=== PATIENT | female | born 1980 | race Caucasian/White ===

== ENCOUNTER 2018-08-15 17:42 | Emergency (ER) | payer MEDICAID ==
[~2018-08-15] VITALS: Ht 162.6 cm; Wt 95.9 kg
[~2018-08-15 17:42] MED LIST: CLON.5 PO; IBUP-2071 PO; LORA1TAB3 PO; METO5TAB95 PO
[2018-08-15 18:47] LABS: BASOPHILS % (AUTO) 0.5 % (0.0-2.0); EOSINOPHILS % (AUTO) 3.5 % (1.0-6.0); HEMATOCRIT 40.6 % (36-46); HEMOGLOBIN 13.6 g/dL (12.0-16.0); LYMPHOCYTES # (AUTO) 2.4 K/uL (1.0-4.8); LYMPHOCYTES % (AUTO) 34.5 % (22.0-44.0); MEAN CORPUSCULAR HEMOGLOBIN 28.5 pg (26.0-34.0); MEAN CORPUSCULAR HGB CONC 33.5 G/dL (31.0-37.0); MEAN CORPUSCULAR VOLUME 85 fL (80-100); MONOCYTES # (AUTO) 0.6 K/uL (0.1-1.0); MONOCYTES % (AUTO) 8.2 % (2.0-9.0); NEUTROPHILS # (AUTO) 3.6 K/uL (1.8-7.7); NEUTROPHILS % (AUTO) 53.3 % (40.0-70.0); PLATELET COUNT (AUTO) 278 K/uL (150-450); RED BLOOD CELL COUNT(AUTO) 4.77 MIL/uL (4.00-5.20); RED CELL DISTRIBUTION WIDTH 14.4 % (11.5-14.5)
[2018-08-15 18:51] LABS: APPEARANCE,URINE CLEAR (CLEAR); BILIRUBIN,URINE NEGATIVE (NEGATIVE); GLUCOSE, URINE (UA) NEGATIVE (NEGATIVE); KETONES,URINE NEGATIVE (NEGATIVE); LEUKOCYTE ESTERASE ,URINE NEGATIVE (NEGATIVE); NITRATE,URINE NEGATIVE (NEGATIVE); OCCULT BLOOD,URINE TRACE (NEGATIVE); PH,URINE 6.5 (5.0-8.0); PROTEIN,URINE NEGATIVE (NEGATIVE); UROBILINOGEN,URINE 0.2 mg/dL (<=1.0)
[2018-08-15 18:56] LABS: ANION GAP 7 mmol/L (8-16); CALCIUM, TOTAL 8.4 mg/dL (8.8-10.5); CARBON DIOXIDE 26 mmol/L (22-29); CHLORIDE 105 mmol/L (98-107); CREATININE 0.85 mg/dL (0.60-1.30); GLOMERULAR FILTR. RATE CALC > 60 mL/min (>60); GLUCOSE,RANDOM 96 mg/dL (70-110); POTASSIUM 4.1 mmol/L (3.5-5.1); SODIUM SERUM 138 mmol/L (136-145); UREA NITROGEN, BLOOD 14 mg/dL (7-18)
[2018-08-15 19:02] LABS: BACTERIA,URINE None Seen /HPF (None Seen); RBC,URINE 0-2 /HPF (0-2); SQUAMOUS EPITHELIAL CELL,UR Few /LPF (None Seen); WBC,URINE None Seen /HPF (0-5)
[2018-08-15 19:08] LABS: ALANINE AMINOTRANSFERASE 18 U/L (12-78); ALBUMIN 3.3 g/dL (3.4-5.0); ALKALINE PHOSPHATASE 69 U/L (46-116); ASPARTATE AMINOTRANSFERASE 12 U/L (15-37); BILIRUBIN,TOTAL 0.2 mg/dL (0.1-1.0); HCG,QUANTITATIVE < 1 mIU/mL (0-6); TOTAL PROTEIN, SERUM 7.2 g/dL (6.4-8.2)
[2018-08-15 19:56] VITALS: BP 125/65
== END 2018-08-15 20:05 | disposition home or self-care (01) ==
LOC: EMS 17:44
DX: N93.8 Other specified abnormal uterine and vaginal bleeding (principal); F41.9 Anxiety disorder, unspecified; G43.909 Migraine, unspecified, not intractable, without status migrainosus; E66.9 Obesity, unspecified; I10 Essential (primary) hypertension; Z68.36 Body mass index [BMI] 36.0-36.9, adult; Z98.51 Tubal ligation status; Z88.2 Allergy status to sulfonamides
CPT/HCPCS: 99284

== ENCOUNTER 2020-06-09 11:23 | Emergency (ER) | payer MEDICAID ==
[~2020-06-09] VITALS: Ht 162.6 cm; Wt 100.0 kg
[~2020-06-09 11:23] MED LIST changes: +LORA-1000 PO; -LORA1TAB3 PO
[2020-06-09] MEDS ORDERED: PENICILLIN G BENZATHINE LA 1,200,000 UNITS/2 ML SYRINGE IM ONE (12:00)
[2020-06-09] MEDS ORDERED: KETOROLAC TROMETHAMINE 30 MG/ML VIAL IM ONE (12:00)
[2020-06-09] MEDS ORDERED: BENZOCAINE/MENTHOL LOZENGE PO ONE (12:00)
[2020-06-09] MEDS ORDERED: AZIT-84 PO (12:01)
[2020-06-09] MEDS ORDERED: ACETAMINOPHEN 500 MG TABLET PO ONE (13:00)
[2020-06-09 13:06] VITALS: BP 128/71
[2020-06-09] MEDS ORDERED: DEXAMETHASONE 4 MG TABLET PO ONE (13:30)
== END 2020-06-09 13:55 | disposition home or self-care (01) ==
LOC: EMS 11:24
DX: J02.0 Streptococcal pharyngitis (principal); I10 Essential (primary) hypertension; F41.9 Anxiety disorder, unspecified; Z91.013 Allergy to seafood; Z79.899 Other long term (current) drug therapy
CPT/HCPCS: 96372; 99284; J0561; J1885; J8540

== ENCOUNTER 2020-12-20 17:13 | Emergency (ER) | payer MEDICAID, OTHER ==
[~2020-12-20] VITALS: Ht 162.6 cm; Wt 100.0 kg
[~2020-12-20 17:13] MED LIST changes: +AZIT-84 PO; +CLON-592 PO; -CLON.5 PO; -METO5TAB95 PO
[2020-12-20] MEDS ORDERED: ACET-2247 PO (17:22)
[2020-12-20] MEDS ORDERED: FLUT16H NASAL (17:22)
[2020-12-20] MEDS ORDERED: LORA10TA7 PO (17:22)
[2020-12-20] MEDS ORDERED: ONDANSETRON HCL 4 MG/2 ML VIAL IVP ONE (18:00)
[2020-12-20] MEDS ORDERED: SODIUM CHLORIDE 0.9% 500 ML IV ONE (18:00)
[2020-12-20] MEDS ORDERED: KETOROLAC TROMETHAMINE 30 MG/ML VIAL IVP ONE (18:00)
[2020-12-20] MEDS ORDERED: DEXAMETHASONE SOD PHOS 4 MG/ML VIAL IVP ONE (18:00)
[2020-12-20 19:45] VITALS: BP 124/77
== END 2020-12-20 19:50 | disposition home or self-care (01) ==
LOC: EMS 17:13
DX: R51.9 Headache, unspecified (principal)
CPT/HCPCS: 93005; 96361; 96375; 99284; 96374; J1100; J1885; J2405; J7040

== ENCOUNTER 2021-03-28 19:23 | Emergency (ER) | payer OTHER, MEDICAID ==
[~2021-03-28] VITALS: Ht 162.6 cm; Wt 104.5 kg
[~2021-03-28 19:23] MED LIST changes: +ACET-2247 PO; -AZIT-84 PO; -CLON-592 PO; +FLUT16H NASAL; +LORA10TA7 PO
[2021-03-28 20:34] LABS: APPEARANCE,URINE CLEAR (CLEAR); BILIRUBIN,URINE NEGATIVE (NEGATIVE); GLUCOSE, URINE (UA) NEGATIVE (NEGATIVE); KETONES,URINE NEGATIVE (NEGATIVE); LEUKOCYTE ESTERASE ,URINE NEGATIVE (NEGATIVE); NITRATE,URINE NEGATIVE (NEGATIVE); OCCULT BLOOD,URINE MODERATE (NEGATIVE); PH,URINE 5.5 (5.0-8.0); PROTEIN,URINE NEGATIVE (NEGATIVE); UROBILINOGEN,URINE 0.2 mg/dL (<=1.0)
[2021-03-28 21:01] LABS: BACTERIA,URINE None Seen /HPF (None Seen); RBC,URINE 0-2 /HPF (0-2); SQUAMOUS EPITHELIAL CELL,UR Few /LPF (None Seen); WBC,URINE 0-2 /HPF (0-5)
[2021-03-28] MEDS ORDERED: SODIUM CHLORIDE 0.9% 1,000 ML IV ONE (21:15)
[2021-03-28] MEDS ORDERED: KETOROLAC TROMETHAMINE 30 MG/ML VIAL IVP ONE (21:15)
[2021-03-28] MEDS ORDERED: ONDANSETRON HCL 4 MG/2 ML VIAL IVP ONE (21:15)
[2021-03-28 21:53] LABS: BASOPHILS % (AUTO) 0.6 % (0.0-2.0); EOSINOPHILS % (AUTO) 3.3 % (1.0-6.0); HEMATOCRIT 39.9 % (36-46); LYMPHOCYTES # (AUTO) 2.8 K/uL (1.0-4.8); LYMPHOCYTES % (AUTO) 29.1 % (22.0-44.0); MEAN CORPUSCULAR HEMOGLOBIN 27.1 pg (26.0-34.0); MEAN CORPUSCULAR HGB CONC 32.5 G/dL (31.0-37.0); MEAN CORPUSCULAR VOLUME 83 fL (80-100); MONOCYTES # (AUTO) 0.9 K/uL (0.1-1.0); MONOCYTES % (AUTO) 9.5 % (2.0-9.0); NEUTROPHILS # (AUTO) 5.5 K/uL (1.8-7.7); NEUTROPHILS % (AUTO) 57.5 % (40.0-70.0); PLATELET COUNT (AUTO) 311 K/uL (150-450); RED BLOOD CELL COUNT(AUTO) 4.79 MIL/uL (4.00-5.20)
[2021-03-28 21:58] LABS: ANION GAP 9 mmol/L (8-16); CALCIUM, TOTAL 8.6 mg/dL (8.8-10.5); CARBON DIOXIDE 25 mmol/L (22-29); CHLORIDE 105 mmol/L (98-107); CREATININE 0.99 mg/dL (0.60-1.30); GLOMERULAR FILTR. RATE CALC > 60 mL/min (>60); GLUCOSE,RANDOM 83 mg/dL (70-110); POTASSIUM 3.7 mmol/L (3.5-5.1); SODIUM SERUM 139 mmol/L (136-145); UREA NITROGEN, BLOOD 19 mg/dL (7-18)
[2021-03-28 22:04] LABS: ALANINE AMINOTRANSFERASE 22 U/L (12-78); ALBUMIN 3.5 g/dL (3.4-5.0); ALKALINE PHOSPHATASE 77 U/L (46-116); ASPARTATE AMINOTRANSFERASE 12 U/L (15-37); BILIRUBIN,TOTAL 0.2 mg/dL (0.1-1.0); LIPASE 95 U/L (73-393); TOTAL PROTEIN, SERUM 7.2 g/dL (6.4-8.2)
[2021-03-28] MEDS ORDERED: MORPHINE SULFATE 4 MG/ML SYRINGE IVP ONE (22:30)
[2021-03-28 23:27] VITALS: BP 115/80
== END 2021-03-29 00:08 | disposition home or self-care (01) ==
LOC: EMS 19:23
DX: R10.12 Left upper quadrant pain (principal); R11.2 Nausea with vomiting, unspecified
CPT/HCPCS: 36415; 74176; 80053; 81001; 81002; 81025; 83690; 85025; 96361; 96374; 96375; 99284; J1885; J2270; J2405; J7030

== ENCOUNTER 2021-08-20 15:18 | Emergency (ER) | payer OTHER, MEDICAID ==
[~2021-08-20] VITALS: Ht 162.6 cm; Wt 101.0 kg
[2021-08-20 17:17] VITALS: BP 129/87
[2021-08-20 17:43] LABS: COVID AG,FIA SOURCE NASOPHARYNGEAL
[2021-08-20] MEDS ORDERED: ALBUTEROL SULFATE HFA 90 MCG/PUFF 8 GM INHALER IH ONE (18:45)
[2021-08-20 18:48] LABS: INFLUENZA TYPE A NEGATIVE FOR TYPE A (NEGATIVE); INFLUENZA TYPE B NEGATIVE FOR TYPE B (NEGATIVE)
== END 2021-08-20 19:10 | disposition home or self-care (01) ==
LOC: EMS 15:22
DX: B34.9 Viral infection, unspecified (principal); J40 Bronchitis, not specified as acute or chronic; F41.9 Anxiety disorder, unspecified; J45.909 Unspecified asthma, uncomplicated; K80.80 Other cholelithiasis without obstruction; I10 Essential (primary) hypertension; Z20.822 Contact with and (suspected) exposure to COVID-19
CPT/HCPCS: 71045; 87426; 87804; 99283; U0003; 99284

== ENCOUNTER 2022-01-02 21:02 | Emergency (ER) | payer OTHER, MEDICAID ==
[~2022-01-02] VITALS: Ht 162.6 cm; Wt 103.6 kg
[2022-01-02] MEDS ORDERED: SUMAtriptan SUCCINATE 6 MG/0.5 ML VIAL SQ ONE (21:45)
[2022-01-02] MEDS ORDERED: SODIUM CHLORIDE 0.9% 1,000 ML IV ONE (22:15)
[2022-01-02] MEDS ORDERED: METOCLOPRAMIDE HCL 5 MG/ML 2 ML VIAL IVP ONE (22:15)
[2022-01-02] MEDS ORDERED: KETOROLAC TROMETHAMINE 30 MG/ML VIAL IVP ONE (22:15)
[2022-01-02] MEDS ORDERED: DiphenhydrAMINE HCL 50 MG/ML VIAL IVP ONE (22:15)
[2022-01-02 23:00] VITALS: BP 138/71
== END 2022-01-02 23:04 | disposition home or self-care (01) ==
LOC: EMS 21:08
DX: G43.909 Migraine, unspecified, not intractable, without status migrainosus (principal); I10 Essential (primary) hypertension; J45.909 Unspecified asthma, uncomplicated; F41.9 Anxiety disorder, unspecified; Z91.013 Allergy to seafood; Z88.8 Allergy status to other drugs, medicaments and biological substances; Z79.899 Other long term (current) drug therapy
CPT/HCPCS: 96372; 96374; 96375; 99284; J1200; J1885; J2765; J3030; J7030

== ENCOUNTER 2022-11-02 08:23 | Emergency (ER) | payer OTHER, MEDICAID ==
[~2022-11-02] VITALS: Ht 162.6 cm; Wt 101.8 kg
[~2022-11-02 08:23] MED LIST changes: -FLUT16H NASAL; +FLUT16SP NASAL; +IBUP-1493 PO; -IBUP-2071 PO
[2022-11-02] MEDS ORDERED: FLUT1BLS10 IH (08:38)
[2022-11-02] MEDS ORDERED: FLUT44H IH (08:38)
[2022-11-02] MEDS: IPRATROPIUM BROMIDE 0.5 MG/2.5 ML NEB SOLUTION NEB ONE (09:44)
[2022-11-02] MEDS: ALBUTEROL SULFATE 2.5 MG/0.5 ML NEB SOLUTION NEB ONE (09:45)
[2022-11-02] MEDS: MAG HYDROX/AL HYDROX/SIMETH ES 30 ML SUSPENSION UDCUP PO ONE (09:46)
[2022-11-02] MEDS: FAMOTIDINE 20 MG TABLET PO ONE (09:46)
[2022-11-02 09:53] LABS: COVID AG,FIA SOURCE NASOPHARYNGEAL
[2022-11-02 10:10] VITALS: BP 102/56
[2022-11-02 10:15] LABS: INFLUENZA TYPE A NEGATIVE FOR TYPE A (NEGATIVE); INFLUENZA TYPE B NEGATIVE FOR TYPE B (NEGATIVE)
[2022-11-02] MEDS ORDERED: AZIT250T9 PO (10:49)
== END 2022-11-02 11:10 | disposition home or self-care (01) ==
LOC: EMS 08:37
DX: J06.9 Acute upper respiratory infection, unspecified (principal); Z20.822 Contact with and (suspected) exposure to COVID-19; J45.909 Unspecified asthma, uncomplicated; K27.9 Peptic ulcer, site unspecified, unspecified as acute or chronic, without hemorrhage or perforation; K21.9 Gastro-esophageal reflux disease without esophagitis; R10.13 Epigastric pain
CPT/HCPCS: 71045; 87804; 93005; 94640; 99285; J7613

== ENCOUNTER 2023-04-18 09:16 | Emergency (ER) | payer OTHER, MEDICAID ==
[~2023-04-18] VITALS: Ht 160 cm; Wt 81.8 kg
[~2023-04-18 09:16] MED LIST changes: -ACET-2247 PO; +FLUT1BLS10 IH; +FLUT44H IH; -IBUP-1493 PO; -LORA10TA7 PO
[2023-04-18] MEDS ORDERED: LORA-999 PO (09:23)
[2023-04-18] MEDS ORDERED: LIDOCAINE 5% TRANSDERMAL PATCH TD ONE (10:15)
[2023-04-18 12:00] VITALS: BP 135/84
[2023-04-18] MEDS ORDERED: LIDO1ADH83 TP (12:01)
== END 2023-04-18 12:14 | disposition home or self-care (01) ==
LOC: EMS 09:18
DX: S63.512A Sprain of carpal joint of left wrist, initial encounter (principal); F41.9 Anxiety disorder, unspecified; J45.909 Unspecified asthma, uncomplicated; I10 Essential (primary) hypertension; G43.909 Migraine, unspecified, not intractable, without status migrainosus; Z90.49 Acquired absence of other specified parts of digestive tract; Z98.51 Tubal ligation status; Z88.8 Allergy status to other drugs, medicaments and biological substances; Z98.890 Other specified postprocedural states; Z91.013 Allergy to seafood; W18.39XA Other fall on same level, initial encounter; Y93.89 Activity, other specified; Y92.89 Other specified places as the place of occurrence of the external cause; Y99.8 Other external cause status
CPT/HCPCS: 99283

== ENCOUNTER 2023-11-13 08:24 | Emergency (ER) | payer OTHER, MEDICAID ==
[~2023-11-13] VITALS: Ht 162.6 cm; Wt 96.8 kg
[~2023-11-13 08:24] MED LIST changes: +LIDO1ADH83 TP; -LORA-1000 PO; +LORA-999 PO
[2023-11-13 08:43] VITALS: TEMP 98.5
[2023-11-13] MEDS ORDERED: ALBUTEROL SULFATE 2.5 MG/0.5 ML NEB SOLUTION NEB ONE (09:00)
[2023-11-13] MEDS ORDERED: IPRATROPIUM BROMIDE 0.5 MG/2.5 ML NEB SOLUTION NEB ONE (09:00)
[2023-11-13 09:09] VITALS: PULSE 88; RESP 25; O2SAT 97
[2023-11-13 09:24] VITALS: PULSE 98; RESP 12; O2SAT 99
[2023-11-13] MEDS ORDERED: ACETAMINOPHEN 500 MG TABLET PO ONE (10:00)
[2023-11-13 10:10] LABS: BASOPHILS % (AUTO) 0.4 % (0.0-2.0); EOSINOPHILS % (AUTO) 0.7 % (1.0-6.0); HEMATOCRIT 38.2 % (36-46); HEMOGLOBIN 12.7 g/dL (12.0-16.0); LYMPHOCYTES % (AUTO) 14.1 % (22.0-44.0); MEAN CORPUSCULAR HEMOGLOBIN 27.6 pg (26.0-34.0); MEAN CORPUSCULAR HGB CONC 33.2 G/dL (31.0-37.0); MEAN CORPUSCULAR VOLUME 83 fL (80-100); MONOCYTES % (AUTO) 14.3 % (2.0-9.0); NEUTROPHILS # (AUTO) 5.1 K/uL (1.8-7.7); NEUTROPHILS % (AUTO) 70.5 % (40.0-70.0); PLATELET COUNT (AUTO) 274 K/uL (150-450); RED CELL DISTRIBUTION WIDTH 16.1 % (11.5-14.5); WHITE BLOOD COUNT (AUTO) 7.3 K/uL (4.5-11.0)
[2023-11-13 10:15] LABS: ANION GAP 9 mmol/L (8-16); CALCIUM, TOTAL 8.5 mg/dL (8.8-10.5); CARBON DIOXIDE 27 mmol/L (22-29); CHLORIDE 105 mmol/L (98-107); CREATININE 0.84 mg/dL (0.60-1.30); GLOMERULAR FILTR. RATE CALC > 60 mL/min (>60); GLUCOSE,RANDOM 84 mg/dL (70-110); POTASSIUM 3.5 mmol/L (3.5-5.1); SODIUM SERUM 141 mmol/L (136-145); UREA NITROGEN, BLOOD 8 mg/dL (7-18)
[2023-11-13 10:17] LABS: INFLUENZA A-RTPCR,COMBO POSITIVE FOR FLU A (NEGATIVE); INFLUENZA B-RTPCR,COMBO NEGATIVE FOR FLU B (NEGATIVE); RESPIRATORY SYNCYTIAL VRS-PCR NEGATIVE (NEGATIVE); SARS COVID19 RTPCR, COMBO NEGATIVE (NEGATIVE)
[2023-11-13 10:21] LABS: ALANINE AMINOTRANSFERASE 14 U/L (12-78); ALBUMIN 3.5 g/dL (3.4-5.0); ALKALINE PHOSPHATASE 68 U/L (46-116); ASPARTATE AMINOTRANSFERASE 11 U/L (15-37); BILIRUBIN,TOTAL 0.1 mg/dL (0.1-1.0); TOTAL PROTEIN, SERUM 6.9 g/dL (6.4-8.2)
[2023-11-13 10:24] LABS: % IRON SATURATION 5.8 % (22-44); IRON, SERUM 21 mcg/dL (50-175); TOTAL IRON BINDING CAPACITY 362 mcg/dL (250-450)
[2023-11-13] MEDS ORDERED: GUAIFDM PO (10:42)
[2023-11-13] MEDS ORDERED: ACET-2080 PO (10:42)
[2023-11-13] MEDS ORDERED: PRED-554 PO (10:42)
[2023-11-13] MEDS ORDERED: IBUP-1554 PO (10:42)
[2023-11-13] MEDS ORDERED: FAMO20 PO (10:42)
[2023-11-13] MEDS ORDERED: ALBU18HF12 IH (10:42)
[2023-11-13] MEDS ORDERED: MAG30ORA11 PO (10:42)
[2023-11-13 10:58] VITALS: BP 120/73; PULSE 90; RESP 16
[2023-11-13] MEDS ORDERED: FAMOTIDINE 20 MG TABLET PO ONE (11:15)
[2023-11-13] MEDS ORDERED: MAG HYDROX/ALUMINUM HYD/SIMETH ES 30 ML SUSPENSION UDCUP PO ONE (11:15)
== END 2023-11-13 11:21 | disposition home or self-care (01) ==
LOC: EMS 08:58
DX: R07.89 Other chest pain (principal); J10.1 Influenza due to other identified influenza virus with other respiratory manifestations; J45.909 Unspecified asthma, uncomplicated; F41.9 Anxiety disorder, unspecified; I10 Essential (primary) hypertension; G43.909 Migraine, unspecified, not intractable, without status migrainosus; K80.20 Calculus of gallbladder without cholecystitis without obstruction; Z90.49 Acquired absence of other specified parts of digestive tract; Z98.51 Tubal ligation status; Z91.013 Allergy to seafood; Z20.822 Contact with and (suspected) exposure to COVID-19; Z98.890 Other specified postprocedural states
CPT/HCPCS: 99285; 0241U; 71045; 80053; 83540; 83550; 84703; 85025; 36415; 94640; 93005; J7613

== ENCOUNTER 2024-01-06 07:37 | Emergency (ER) | payer OTHER, MEDICAID ==
[~2024-01-06] VITALS: Ht 162.6 cm; Wt 98.2 kg
[~2024-01-06 07:37] MED LIST changes: +ACET-2080 PO; +ALBU18HF12 IH; +FAMO20 PO; +GUAIFDM PO; +IBUP-1554 PO; +MAG30ORA11 PO; +PRED-554 PO
[2024-01-06 07:46] VITALS: TEMP 98.7
[2024-01-06 08:35] VITALS: BP 110/70; PULSE 70; RESP 18
== END 2024-01-06 08:39 | disposition home or self-care (01) ==
LOC: EMS 07:37
DX: S92.911A Unspecified fracture of right toe(s), initial encounter for closed fracture (principal); J45.909 Unspecified asthma, uncomplicated; I10 Essential (primary) hypertension; F41.9 Anxiety disorder, unspecified; G43.909 Migraine, unspecified, not intractable, without status migrainosus; K80.20 Calculus of gallbladder without cholecystitis without obstruction; Z90.49 Acquired absence of other specified parts of digestive tract; Z98.51 Tubal ligation status; Z91.013 Allergy to seafood; Z98.890 Other specified postprocedural states; X58.XXXA Exposure to other specified factors, initial encounter; Y93.89 Activity, other specified; Y92.89 Other specified places as the place of occurrence of the external cause; Y99.8 Other external cause status
CPT/HCPCS: 99283

== ENCOUNTER 2024-04-08 14:06 | Emergency (ER) | payer MEDICAID, OTHER ==
[~2024-04-08] VITALS: Ht 162.6 cm; Wt 95.0 kg
[~2024-04-08 14:06] MED LIST changes: -ACET-2080 PO; -FAMO20 PO; -FLUT1BLS10 IH; -GUAIFDM PO; -IBUP-1554 PO; -LIDO1ADH83 TP; -MAG30ORA11 PO; -PRED-554 PO
[2024-04-08 14:12] VITALS: BP 132/84; PULSE 69; RESP 18; TEMP 98
== END 2024-04-08 17:41 | disposition left against medical advice (07) ==
LOC: EMS 14:06
DX: R42 Dizziness and giddiness (principal); R11.0 Nausea; Z53.21 Procedure and treatment not carried out due to patient leaving prior to being seen by health care provider

== ENCOUNTER 2024-07-16 07:59 | Emergency (ER) | payer OTHER, MEDICAID ==
[~2024-07-16] VITALS: Ht 162.6 cm; Wt 92.3 kg
[2024-07-16 08:12] VITALS: TEMP 98.6
[2024-07-16] MEDS ORDERED: CYCL-448 PO (10:13)
[2024-07-16] MEDS ORDERED: IBUP-1492 PO (10:13)
[2024-07-16 10:15] VITALS: BP 112/73; PULSE 65; RESP 17; O2SAT 99
== END 2024-07-16 11:59 | disposition home or self-care (01) ==
LOC: EMS 07:59
DX: S16.1XXA Strain of muscle, fascia and tendon at neck level, initial encounter (principal); F41.9 Anxiety disorder, unspecified; J45.909 Unspecified asthma, uncomplicated; I10 Essential (primary) hypertension; G43.909 Migraine, unspecified, not intractable, without status migrainosus; E05.90 Thyrotoxicosis, unspecified without thyrotoxic crisis or storm; Z90.49 Acquired absence of other specified parts of digestive tract; Z98.51 Tubal ligation status; Z98.890 Other specified postprocedural states; Z91.013 Allergy to seafood; Z88.8 Allergy status to other drugs, medicaments and biological substances; X58.XXXA Exposure to other specified factors, initial encounter; Y93.89 Activity, other specified; Y92.89 Other specified places as the place of occurrence of the external cause; Y99.8 Other external cause status
CPT/HCPCS: 99282; Z7502

== ENCOUNTER 2024-08-28 09:38 | Emergency (ER) | payer OTHER, MEDICAID ==
[~2024-08-28] VITALS: Ht 162.6 cm; Wt 79.1 kg
[~2024-08-28 09:38] MED LIST changes: -ALBU18HF12 IH; +CYCL-448 PO; -FLUT16SP NASAL; -FLUT44H IH; +IBUP-1492 PO; -LORA-999 PO
[2024-08-28 09:47] VITALS: TEMP 98.3
[2024-08-28 10:40] VITALS: BP 131/59; PULSE 65; RESP 16; O2SAT 98
== END 2024-08-28 11:24 | disposition home or self-care (01) ==
LOC: EMS 09:38
DX: S43.101A Unspecified dislocation of right acromioclavicular joint, initial encounter (principal); F41.9 Anxiety disorder, unspecified; J45.909 Unspecified asthma, uncomplicated; I10 Essential (primary) hypertension; G43.909 Migraine, unspecified, not intractable, without status migrainosus; Z90.49 Acquired absence of other specified parts of digestive tract; Z98.51 Tubal ligation status; X50.0XXA Overexertion from strenuous movement or load, initial encounter; Y93.89 Activity, other specified; Y92.89 Other specified places as the place of occurrence of the external cause; Y99.8 Other external cause status
CPT/HCPCS: 99284; 73000-TC; 73030-TC; Z7502

== ENCOUNTER 2024-09-28 06:49 | Emergency (ER) | payer OTHER, MEDICAID ==
[~2024-09-28] VITALS: Ht 162.6 cm; Wt 89.5 kg
[2024-09-28 06:53] VITALS: BP 102/57; TEMP 99
[2024-09-28 07:02] LABS: COVID AG,FIA SOURCE NASAL SWAB
[2024-09-28 07:25] LABS: INFLUENZA TYPE A NEGATIVE FOR TYPE A (NEGATIVE); INFLUENZA TYPE B NEGATIVE FOR TYPE B (NEGATIVE); SARS-COV2 (COVID) ANTIGEN,FIA Negative (Negative)
[2024-09-28] MEDS: ACETAMINOPHEN 500 MG TABLET PO ONE (08:22)
[2024-09-28] MEDS ORDERED: 0.9% SODIUM CHLORIDE 5 ML NEB SOLUTION NEB ONE (09:03)
[2024-09-28] MEDS: ALBUTEROL SULFATE 2.5 MG/0.5 ML NEB SOLUTION NEB ONE (09:05)
[2024-09-28 09:09] VITALS: PULSE 73; RESP 18; O2SAT 98
[2024-09-28 09:10] VITALS: PULSE 73; RESP 18; O2SAT 98
[2024-09-28] MEDS ORDERED: BENZ-227 PO (09:16)
[2024-09-28 09:23] VITALS: PULSE 80; RESP 16; O2SAT 98
== END 2024-09-28 09:55 | disposition home or self-care (01) ==
LOC: EMS 06:49
DX: J06.9 Acute upper respiratory infection, unspecified (principal); B97.89 Other viral agents as the cause of diseases classified elsewhere; R09.81 Nasal congestion; R68.83 Chills (without fever); I10 Essential (primary) hypertension; J45.909 Unspecified asthma, uncomplicated; K76.0 Fatty (change of) liver, not elsewhere classified; Z98.51 Tubal ligation status; Z90.49 Acquired absence of other specified parts of digestive tract; Z20.822 Contact with and (suspected) exposure to COVID-19
CPT/HCPCS: 71045; 87430; 87804; 93005; 94640; 99285; J7613

== ENCOUNTER 2024-11-24 10:54 | Emergency (ER) | payer OTHER, MEDICAID ==
[~2024-11-24] VITALS: Ht 162.6 cm; Wt 89.5 kg
[~2024-11-24 10:54] MED LIST changes: +BENZ-227 PO; -CYCL-448 PO; -IBUP-1492 PO
[2024-11-24 11:11] VITALS: BP 119/62; PULSE 70; RESP 18; TEMP 97.9; O2SAT 99
[2024-11-24] MEDS ORDERED: BUSP10TA23 PO (11:15)
[2024-11-24] MEDS ORDERED: LORA-1000 PO (11:15)
[2024-11-24 11:56] LABS: BASOPHILS % (AUTO) 0.6 % (0.0-2.0); EOSINOPHILS % (AUTO) 5.5 % (1.0-6.0); HEMOGLOBIN 14.4 g/dL (12.0-16.0); LYMPHOCYTES # (AUTO) 1.9 K/uL (1.0-4.8); LYMPHOCYTES % (AUTO) 30.1 % (22.0-44.0); MEAN CORPUSCULAR HEMOGLOBIN 29.3 pg (26.0-34.0); MEAN CORPUSCULAR HGB CONC 32.7 G/dL (31.0-37.0); MEAN CORPUSCULAR VOLUME 90 fL (80-100); MONOCYTES # (AUTO) 0.6 K/uL (0.1-1.0); MONOCYTES % (AUTO) 8.9 % (2.0-9.0); NEUTROPHILS # (AUTO) 3.5 K/uL (1.8-7.7); NEUTROPHILS % (AUTO) 54.9 % (40.0-70.0); PLATELET COUNT (AUTO) 272 K/uL (150-450); RED BLOOD CELL COUNT(AUTO) 4.91 MIL/uL (4.00-5.20); RED CELL DISTRIBUTION WIDTH 14.1 % (11.5-14.5); WHITE BLOOD COUNT (AUTO) 6.4 K/uL (4.5-11.0)
[2024-11-24 12:07] LABS: ANION GAP 7 mmol/L (8-16); CALCIUM, TOTAL 8.5 mg/dL (8.8-10.5); CARBON DIOXIDE 27 mmol/L (22-29); CHLORIDE 102 mmol/L (98-107); CREATININE 0.82 mg/dL (0.60-1.30); GLOMERULAR FILTR. RATE CALC > 60 mL/min (>60); GLUCOSE,RANDOM 86 mg/dL (70-110); POTASSIUM 3.9 mmol/L (3.5-5.1); SODIUM SERUM 136 mmol/L (136-145); UREA NITROGEN, BLOOD 7 mg/dL (7-18)
[2024-11-24 12:13] LABS: TROPONIN I-HIGH SENSITIVITY Less Than 4 ng/L (<51)
== END 2024-11-24 14:33 | disposition home or self-care (01) ==
LOC: EMS 10:58
DX: K21.9 Gastro-esophageal reflux disease without esophagitis (principal); R07.89 Other chest pain; F41.9 Anxiety disorder, unspecified; I10 Essential (primary) hypertension; G43.909 Migraine, unspecified, not intractable, without status migrainosus; M79.602 Pain in left arm; J45.909 Unspecified asthma, uncomplicated; Z79.899 Other long term (current) drug therapy; Z90.49 Acquired absence of other specified parts of digestive tract; Z98.51 Tubal ligation status; Z91.013 Allergy to seafood
CPT/HCPCS: 71045; 80048; 84484; 85025; 93005; 99285; 36415-L1; 36415-TC

== ENCOUNTER 2025-05-02 18:38 | Emergency (ER) | payer OTHER, MEDICAID ==
[~2025-05-02] VITALS: Ht 162.6 cm; Wt 80.0 kg
[~2025-05-02 18:38] MED LIST changes: +BUSP10TA23 PO; +DICY-1 PO; +LORA1TAB25 PO
[2025-05-02 18:51] VITALS: BP 101/52; PULSE 64; RESP 18; TEMP 98.1; O2SAT 100
[2025-05-02 20:35] LABS: INFLUENZA A-RTPCR,COMBO NEGATIVE (NEGATIVE); INFLUENZA B-RTPCR,COMBO NEGATIVE (NEGATIVE); RESPIRATORY SYNCYTIAL VRS-PCR NEGATIVE (NEGATIVE); SARS COVID19 RTPCR, COMBO NEGATIVE (NEGATIVE)
[2025-05-02] MEDS ORDERED: ACET-2080 PO (20:45)
== END 2025-05-02 20:59 | disposition home or self-care (01) ==
LOC: EMS 18:38
DX: J06.9 Acute upper respiratory infection, unspecified (principal); F41.9 Anxiety disorder, unspecified; J45.909 Unspecified asthma, uncomplicated; I10 Essential (primary) hypertension; K76.0 Fatty (change of) liver, not elsewhere classified; E03.9 Hypothyroidism, unspecified; G43.909 Migraine, unspecified, not intractable, without status migrainosus; Z20.822 Contact with and (suspected) exposure to COVID-19; Z90.49 Acquired absence of other specified parts of digestive tract; Z98.51 Tubal ligation status; Z98.890 Other specified postprocedural states; Z79.899 Other long term (current) drug therapy; Z91.013 Allergy to seafood; Z91.09 Other allergy status, other than to drugs and biological substances
CPT/HCPCS: 99284; 0241U; 93005; Z7502

== ENCOUNTER 2025-06-01 20:14 | Emergency (ER) | payer OTHER, MEDICAID ==
[~2025-06-01] VITALS: Ht 162.6 cm; Wt 79.5 kg
[~2025-06-01 20:14] MED LIST changes: +ACET-2080 PO
[2025-06-01 20:31] VITALS: TEMP 97.9
[2025-06-01 22:45] LABS: PLATELET COUNT (AUTO) 246 K/uL (150-450); RED BLOOD CELL COUNT(AUTO) 4.36 MIL/uL (4.00-5.20); RED CELL DISTRIBUTION WIDTH 15.4 % (11.5-14.5); WHITE BLOOD COUNT (AUTO) 8.1 K/uL (4.5-11.0)
[2025-06-01 22:51] LABS: CALCIUM, TOTAL 8.2 mg/dL (8.8-10.5); CREATININE 0.68 mg/dL (0.60-1.30); GLOMERULAR FILTR. RATE CALC > 60 mL/min (>60); GLUCOSE,RANDOM 86 mg/dL (70-110); SODIUM SERUM 141 mmol/L (136-145); UREA NITROGEN, BLOOD 7 mg/dL (7-18)
[2025-06-01 23:04] LABS: TROPONIN I-HIGH SENSITIVITY Less Than 4 ng/L (<51)
[2025-06-01] MEDS: PB/HYOSCY/ATR/SCOP/LIDO/MAALOX 55 ML BOTTLE PO ONE (23:09)
[2025-06-01 23:20] VITALS: BP 124/78; PULSE 68; RESP 18; O2SAT 98
== END 2025-06-01 23:27 | disposition home or self-care (01) ==
LOC: EMS 20:14
DX: R07.89 Other chest pain (principal); F41.9 Anxiety disorder, unspecified; I10 Essential (primary) hypertension; J45.909 Unspecified asthma, uncomplicated; K76.0 Fatty (change of) liver, not elsewhere classified; G43.909 Migraine, unspecified, not intractable, without status migrainosus; Z90.49 Acquired absence of other specified parts of digestive tract; Z98.51 Tubal ligation status; Z98.890 Other specified postprocedural states; Z79.899 Other long term (current) drug therapy
CPT/HCPCS: 71045; 80048; 83735; 84484; 85025; 93005; 99285; 36415-L1; 36415-TC

== ENCOUNTER 2025-08-30 15:30 | Emergency (ER) | payer MEDICAID, OTHER ==
[~2025-08-30] VITALS: Ht 165.1 cm; Wt 75.0 kg
[2025-08-30] MEDS ORDERED: UNKNOWN ANTIBIOTIC PO (15:48)
[2025-08-30 15:53] LABS: COVID AG,FIA SOURCE NASAL SWAB
[2025-08-30 16:07] LABS: RAPID GROUP A STREP NEGATIVE (NEGATIVE)
[2025-08-30 16:10] LABS: SARS-COV2 (COVID) ANTIGEN,FIA Negative (Negative)
[2025-08-30 16:17] LABS: INFLUENZA TYPE A NEGATIVE FOR TYPE A (NEGATIVE); INFLUENZA TYPE B NEGATIVE FOR TYPE B (NEGATIVE)
[2025-08-30 17:17] LABS: PLATELET COUNT (AUTO) 317 K/uL (150-450); RED BLOOD CELL COUNT(AUTO) 5.11 MIL/uL (4.00-5.20); RED CELL DISTRIBUTION WIDTH 13.3 % (11.5-14.5); WHITE BLOOD COUNT (AUTO) 6.6 K/uL (4.5-11.0)
[2025-08-30 17:22] LABS: CALCIUM, TOTAL 8.3 mg/dL (8.8-10.5); CREATININE 0.83 mg/dL (0.60-1.30); GLOMERULAR FILTR. RATE CALC > 60 mL/min (>60); GLUCOSE,RANDOM 94 mg/dL (70-110); SODIUM SERUM 137 mmol/L (136-145); UREA NITROGEN, BLOOD 11 mg/dL (7-18)
[2025-08-30 18:40] VITALS: BP 102/81; PULSE 78; RESP 18; TEMP 98.1; O2SAT 98
== END 2025-08-30 18:41 | disposition home or self-care (01) ==
LOC: EMS 15:30
DX: B34.9 Viral infection, unspecified (principal); J02.9 Acute pharyngitis, unspecified; I10 Essential (primary) hypertension; G43.909 Migraine, unspecified, not intractable, without status migrainosus; J45.909 Unspecified asthma, uncomplicated; Z90.49 Acquired absence of other specified parts of digestive tract; Z91.013 Allergy to seafood; Z98.51 Tubal ligation status; Z20.822 Contact with and (suspected) exposure to COVID-19
CPT/HCPCS: 80048; 85025; 87430; 87804; 93005; 99284